=== PATIENT | male | born 1955 | race Two or more races ===

== ENCOUNTER 2017-01-14 11:15 | Inpatient (IN) | payer OTHER ==
[2017-01-14 11:46] VITALS: BMI 24.4
--- NOTE | 2017-01-14 14:16 | HP ---
CIWA Score - CIWA Score Nausea/Vomitin Muscle Tremors: 3 Anxiety: 3 Agitation: 3 Paroxysmal Sweats: 2 Orientation: 0-Oriented Tacttile Disturbances: 2-Mild Itch/Numbness/Burn Auditory Disturbances: 2-Mild Harshness/Frighten Visual Disturbances: 2-Mild Sensitivity Headache: 2-Mild CIWA-Ar Total Score: 22 Admission ROS BHS - HPI Chief Complaint: i need help to stop drinking alcohol Allergies/Adverse Reactions: Allergies Allergy/AdvReac Type Severity Reaction Status Date / Time sulfamethoxazole Allergy Severe Rash Verified 09/26/16 09:42 [From Bactrim] trimethoprim [From Bactrim] Allergy Severe Rash Verified 09/26/16 09:42 History of Present Illness: this 61 years old male with alcohol dependence,withdrawal symptom,last detox [facility] 09/26/16 to 09/30/16 gerd anxiety and depression' insomnia positive ppd treated Exam Limitations: No Limitations - Ebola screening Have you traveled outside of the country in the last 21 days: No Have you been sick,other than usual withdrawal symptoms: No - Review of Systems Constitutional: Diaphoresis, Loss of Appetite, Malaise, Night Sweats, Changes in sleep, Weakness EENT: reports: No Symptoms Reported, Nose Congestion Respiratory: reports: No Symptoms reported Cardiac: reports: No Symptoms Reported GI: reports: Diarrhea, Nausea, Indigestion, Abdominal cramping : reports: No Symptoms Reported Integumentary: reports: Dryness Neuro: reports: Headache, Tremors Endocrine: reports: No Symptoms Reported Hematology: reports: No Symptoms Reported Psychiatric: reports: No Sypmtoms Reported, Judgement Intact, Mood/Affect Appropiate, Orientated x3, Anxious, Depressed Patient History - Patient Medical History Hx Asthma: No Hx Chronic Obstructive Pulmonary Disease (COPD): No Hx Cancer: No Hx Cardiac Disorders: No Hx Congestive Heart Failure: No Hx Hypertension: No Hx Hypercholesterolemia: No Hx Pacemaker: No HX Cerebrovascular Accident: No Hx Seizures: No Hx Dementia: No Hx Diabetes: No Hx Gastrointestinal Disorders: No Hx Liver Disease: No Hx Genitourinary Disorders: No Hx Sexually Transmitted Disorders: No Hx Renal Disease (ESRD): No Hx Thyroid Disease: No Hx Human Immunodeficiency Virus (HIV): No (LAST 08/17 NEGATIVE) Hx Hepatitis C: No Hx Depression: Yes (ANXIETY) Hx Suicide Attempt: No Hx Bipolar Disorder: No Hx Schizophrenia: No Other Medical History: no suicidal,no homicidal,low back pain - Patient Surgical History Past Surgical History: No Hx Neurologic Surgery: No Hx Cataract Extraction: No Hx Cardiac Surgery: No Hx Lung Surgery: No Hx Breast Surgery: No Hx Breast Biopsy: No Hx Abdominal Surgery: No Hx Appendectomy: No Hx Cholecystectomy: No Hx Genitourinary Surgery: No Hx Section: No Hx Orthopedic Surgery: No Anesthesia Reaction: No - PPD History Documented Results: Positive w/proof PPD to be Administered?: No - Smoking Cessation Smoking history: Never smoked Hx Chewing Tobacco Use: No Family Disease History - Family Disease History Family Disease History: Other: Father (ALCOHOL) Admission Physical Exam [facility] - Vital Signs Vital Signs: Vital Signs - 24 hr 01/14/17 11:44 Temperature 97.4 F L Pulse Rate 74 Respiratory 20 Rate Blood Pressure 150/88 - Physical General Appearance: Yes: Moderate Distress, Tremorous, Irritable, Sweating, Anxious HEENTM: Yes: Normocephalic, Pharynx Normal, Nasal Congestion Respiratory: Yes: Lungs Clear, Normal Breath Sounds, No Respiratory Distress Neck: Yes: Within Normal Limits Breast: Yes: Within Normal Limits Cardiology: Yes: Within Normal Limits, Regular Rhythm, Regular Rate, S1, S2 Abdominal: Yes: Within Normal Limits, Normal Bowel Sounds, Non Tender, Flat, Soft Genitourinary: Yes: Within Normal Limits Back: Yes: Within Normal Limits, Muscle Spasm Musculoskeletal: Yes: Back pain, Muscle Pain Extremities: Yes: Within Normal Limits, Normal Range of Motion, Tremors 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, Alert, Motor Strength 5/5 Integumentary: Yes: Dry Lymphatic: Yes: Within Normal Limits - Diagnostic (1) Alcohol dependence with uncomplicated withdrawal Current Visit: No Status: Acute (2) Anxiety and depression Current Visit: No Status: Acute (3) Syncope Current Visit: No Status: Acute (4) Insomnia Current Visit: No Status: Acute (5) Low back pain Current Visit: No Status: Chronic Qualifiers: Chronicity: chronic Back pain laterality: unspecified Sciatica presence: with sciatica presence unspecified Qualified Code(s): M54.5 - Low back pain Cleared for Admission [facility] - Detox or Rehab [facility] Level of Care: Medically Managed Detox Regimen/Protocol: Librium [facility] Breath Alcohol Content Breath Alcohol Content: 0 Urine Drug Screen - Results Drug Screen Negative: No Urine Drug Screen Results: MET-Methamphetamine, BZO-Benzodiazepines, TCA- Tricyclic Antidepress
[2017-01-14] MEDS ORDERED: P-EPHED 60MG/TRIPROLIDI 2.5MG TABLET PO PRN (14:30)
[2017-01-14] MEDS ORDERED: ACETAMINOPHEN 325 MG TABLET (FP) PO PRN (14:30)
[2017-01-14] MEDS ORDERED: LOPERAMIDE HCL 2 MG CAPSULE PO PRN (14:30)
[2017-01-14] MEDS ORDERED: MAG HYDROX/AL HYDROX/SIMETH 30 ML UNIT-DOSE CUP PO PRN (14:30)
[2017-01-14] MEDS ORDERED: MAGNESIUM CITRATE 300 ML BOTTLE PO PRN (14:30)
[2017-01-14] MEDS ORDERED: hydrOXYzine PAMOATE 50 MG CAPSULE (FP) PO PRN (14:30)
[2017-01-14] MEDS ORDERED: MAGNESIUM HYDROX 2400MG/30ML ORAL SUSPENSION 30 ML CUP PO PRN (14:30)
[2017-01-14] MEDS ORDERED: guaiFENesin/D-METHORPHAN HB 10 ML UNIT-DOSE CUPS PO PRN (14:30)
[2017-01-14] MEDS ORDERED: IBUPROFEN 400 MG TABLET (FP) PO PRN (14:30)
[2017-01-14] MEDS ORDERED: MENTHOL/PHENOL 1 EACH UD MM PRN (14:30)
[2017-01-14] MEDS ORDERED: diphenhydrAMINE HCL 50 MG CAPSULE PO PRN (14:30)
[2017-01-14] MEDS ORDERED: chlordiazePOXIDE HCL 25 MG CAPSULE PO PRN (14:30)
--- NOTE | 2017-01-14 14:30 | HP ---
CIWA Score - CIWA Score Nausea/Vomitin Muscle Tremors: 3 Anxiety: 3 Agitation: 3 Paroxysmal Sweats: 2 Orientation: 0-Oriented Tacttile Disturbances: 2-Mild Itch/Numbness/Burn Auditory Disturbances: 2-Mild Harshness/Frighten Visual Disturbances: 2-Mild Sensitivity Headache: 2-Mild CIWA-Ar Total Score: 22 Admission ROS S - HPI Allergies/Adverse Reactions: Allergies Allergy/AdvReac Type Severity Reaction Status Date / Time sulfamethoxazole Allergy Severe Rash Verified 01/14/17 14:10 [From Bactrim] trimethoprim [From Bactrim] Allergy Severe Rash Verified 01/14/17 14:10 - Ebola screening Have you traveled outside of the country in the last 21 days: No Have you been sick,other than usual withdrawal symptoms: No Patient History - Patient Medical History Hx Asthma: No Hx Chronic Obstructive Pulmonary Disease (COPD): No Hx Cancer: No Hx Cardiac Disorders: No Hx Congestive Heart Failure: No Hx Hypertension: No Hx Hypercholesterolemia: No Hx Pacemaker: No HX Cerebrovascular Accident: No Hx Seizures: No Hx Dementia: No Hx Diabetes: No Hx Gastrointestinal Disorders: No Hx Liver Disease: No Hx Genitourinary Disorders: No Hx Sexually Transmitted Disorders: No Hx Renal Disease (ESRD): No Hx Thyroid Disease: No Hx Human Immunodeficiency Virus (HIV): No (LAST 08/17 NEGATIVE) Hx Hepatitis C: No Hx Depression: Yes (ANXIETY) Hx Suicide Attempt: No Hx Bipolar Disorder: No Hx Schizophrenia: No Other Medical History: no suicidal,no homicidal,low back pain - Patient Surgical History Past Surgical History: No Hx Neurologic Surgery: No Hx Cataract Extraction: No Hx Cardiac Surgery: No Hx Lung Surgery: No Hx Breast Surgery: No Hx Breast Biopsy: No Hx Abdominal Surgery: No Hx Appendectomy: No Hx Cholecystectomy: No Hx Genitourinary Surgery: No Hx Section: No Hx Orthopedic Surgery: No Anesthesia Reaction: No - PPD History Previous Implant?: Yes Documented Results: Positive w/proof Implanted On Prior R Admission?: No - Smoking Cessation Smoking history: Never smoked Hx Chewing Tobacco Use: No Family Disease History - Family Disease History Family Disease History: Other: Father (ALCOHOL) Admission Physical Exam S - Vital Signs Vital Signs: Vital Signs - 24 hr 01/14/17 11:44 Temperature 97.4 F L Pulse Rate 74 Respiratory 20 Rate Blood Pressure 150/88 - Diagnostic (1) Alcohol dependence with uncomplicated withdrawal Current Visit: No Status: Acute (2) Anxiety and depression Current Visit: No Status: Acute (3) Syncope Current Visit: No Status: Acute (4) Insomnia Current Visit: No Status: Acute (5) Low back pain Current Visit: No Status: Chronic Qualifiers: Chronicity: chronic Back pain laterality: unspecified Sciatica presence: with sciatica presence unspecified Qualified Code(s): M54.5 - Low back pain Cleared for Admission [facility] - Detox or Rehab [facility] Level of Care: Medically Managed Detox Regimen/Protocol: Librium [facility] Breath Alcohol Content Breath Alcohol Content: 0 Urine Drug Screen - Results Drug Screen Negative: No Urine Drug Screen Results: MET-Methamphetamine, BZO-Benzodiazepines, TCA- Tricyclic Antidepress
[2017-01-14] MEDS ORDERED: chlordiazePOXIDE HCL 25 MG CAPSULE PO ONE (15:19)
[2017-01-14] MEDS: chlordiazePOXIDE HCL 25 MG CAPSULE PO SCH ×2 (17:51→22:28)
--- NOTE | 2017-01-14 18:18 | CONSULT ---
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 Substance Abuse History: Patient abuses beer on a daily basis.Onset of abuse : age 18. No history of smoking. Medical History: Significant for alcohol-related seizures. Psychiatric History: No history of psychiatric hospitalizations.Known to multiple detox/rehabilitation facilities.Diagnosed with Mood Disorder and Anxiety.Patient used to be on remeron 15 mg/hs + topamax 50 mg/day + gabapentin 600 mg po tid.Mr Etienne states the has not taken psychotropic medications for over six months.He was discharged from this service in September 2016 but he stopped taking the prescribed remeron after he ran out of that medication.Patient requests that remeron be included in his current regimen.No history of suicide attempts. Physical/Sexual Abuse/Trauma History: Patient denies. Additional Comment: Urine Drug Screen Results: MET-Methamphetamine, BZO- Benzodiazepines, TCA-Tricyclic Antidepressant.Noted. Mental Status Exam - Mental Status Exam Alert and Oriented to: Time, Place, Person Cognitive Function: Good Patient Appearance: Well Groomed Mood: Hopeful, Euthymic Affect: Appropriate, Normal Range Patient Behavior: Fatigued, Appropriate, Cooperative Speech Pattern: Clear, Appropriate Voice Loudness: Normal Thought Process: Goal Oriented Thought Disorder: Not Present Hallucinations: Denies Suicidal Ideation: Denies Homicidal Ideation: Denies Insight/Judgement: Fair Sleep: Poorly, Difficulty falling asleep Appetite: Good Muscle strength/Tone: Normal Gait/Station: Normal Psychiatric Findings - Problem List ([place] 1, 2,3) (1) Alcohol dependence with uncomplicated withdrawal Current Visit: Yes Status: Acute (2) Alcohol-induced mood disorder Current Visit: Yes Status: Acute (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
[2017-01-14 18:39] LABS: URINE APPEARANCE CLEAR; URINE BILIRUBIN NEGATIVE (NEGATIVE); URINE COLOR YELLOW; URINE GLUCOSE (UA) NEGATIVE (NEGATIVE); URINE KETONE NEGATIVE (NEGATIVE); URINE LEUK ESTERASE NEGATIVE (NEGATIVE); URINE NITRITE NEGATIVE (NEGATIVE); URINE PROTEIN NEGATIVE (NEGATIVE); URINE UROBILINOGEN NEGATIVE E.U./dl (0.2-1.0)
[2017-01-14 18:40] LABS: URINE BLOOD 1+ (NEGATIVE)
[2017-01-14 18:45] LABS: URINE BACTERIA RARE /hpf (NONE SEEN); URINE WBC 1 /hpf (3-5)
[2017-01-14] MEDS: MIRTAZAPINE 15 MG TABLET (FP) PO SCH (22:28)
[2017-01-14] MEDS: RANITIDINE HCL 150 MG TABLET (FP) PO SCH (22:28)
[2017-01-14] MEDS: THIAMINE HCL 100 MG TABLET (FP) PO SCH (22:28)
[2017-01-15] MEDS: chlordiazePOXIDE HCL 25 MG CAPSULE PO SCH ×4 (06:05→22:25)
[2017-01-15 09:55] LABS: MCH 32.3 pg (25.7-33.7); MCHC 33.5 g/dl (32.0-35.9); MEAN CELL VOLUME 96.4 fl (80-96); MEAN PLT VOLUME 8.7 fl (7.5-11.1); PLATELET COUNT 242 K/MM3 (134-434); RDW 14.9 % (11.9-15.9); WHITE BLOOD COUNT 6.7 K/mm3 (4.0-10.0)
[2017-01-15] MEDS ORDERED: PRENATAL VITAMINS W/ FOLIC ACID TABLET (FP) PO SCH (10:00)
[2017-01-15 10:42] LABS: ALBUMIN 3.8 g/dl (3.4-5.0); ALK PHOS 96 U/L (45-117); ANION GAP 9 (8-16); BILIRUBIN,TOTAL 0.9 mg/dL (0.2-1.0); CALCIUM 9.8 mg/dL (8.5-10.1); CO2 29 mmol/L (21-32); GLUCOSE,RANDOM 107 mg/dL (74-106); SGOT/AST 82 U/L (15-37); SGPT/ALT 85 U/L (12-78); TOT PROT 7.5 g/dl (6.4-8.2)
--- NOTE | 2017-01-15 11:15 | PN ---
S CIWA - CIWA Score Nausea/Vomitin Muscle Tremors: 3 Anxiety: 3 Agitation: 3 Paroxysmal Sweats: 3 Orientation: 0-Oriented Tacttile Disturbances: 2-Mild Itch/Numbness/Burn Auditory Disturbances: 0-None Visual Disturbances: 0-None Headache: 0-None Present CIWA-Ar Total Score: 16 BHS Progress Note (SOAP) Subjective: shakes sweats, irritable Objective: 01/15/17 11:14 Vital Signs Temperature 97 F L 01/15/17 10:15 Pulse Rate 107 H 01/15/17 10:15 Respiratory Rate 16 01/15/17 10:15 Blood Pressure 128/78 01/15/17 10:15 O2 Sat by Pulse Oximetry (%) Laboratory Tests 01/14/17 01/14/17 01/15/17 14:15 17:45 06:00 WBC 6.7 RBC 4.60 Hgb 14.8 D Hct 44.3 MCV 96.4 H MCHC 33.5 RDW 14.9 D Plt Count 242 MPV 8.7 Sodium Potassium Chloride Carbon Dioxide Anion Gap BUN Creatinine Creat Clearance w eGFR Random Glucose Calcium Total Bilirubin AST ALT Alkaline Phosphatase Total Protein Albumin Urine Color Yellow Urine Appearance Clear Urine pH 8.0 D Ur Specific [place] 1.006 Urine Protein Negative Urine Glucose (UA) Negative Urine Ketones Negative Urine Blood 1+ H Urine Nitrite Negative Urine Bilirubin Negative Urine Urobilinogen Negative Ur Leukocyte Esterase Negative Urine RBC None Urine WBC 1 Ur Epithelial Cells Rare Urine Bacteria Rare Hepatitis C Antibody 0.1 01/15/17 06:00 WBC RBC Hgb Hct MCV MCHC RDW Plt Count MPV Sodium 136 Potassium 3.9 Chloride 98 Carbon Dioxide 29 Anion Gap 9 BUN 10 Creatinine 1.0 D Creat Clearance w eGFR > 60 Random Glucose 107 H D Calcium 9.8 Total Bilirubin 0.9 D AST 82 H D ALT 85 H D Alkaline Phosphatase 96 Total Protein 7.5 Albumin 3.8 Urine Color Urine Appearance Urine pH Ur Specific [place] Urine Protein Urine Glucose (UA) Urine Ketones Urine Blood Urine Nitrite Urine Bilirubin Urine Urobilinogen Ur Leukocyte Esterase Urine RBC Urine WBC Ur Epithelial Cells Urine Bacteria Hepatitis C Antibody pt aox3 in nad ambulating , irritable Assessment: 01/15/17 11:14 withdrawal sx;s Plan: cont. detox increase fluids d/c tylenol
--- NOTE | 2017-01-15 15:29 | EKG ---
Test Reason : Blood Pressure : / mmHG Vent. Rate : 069 BPM Atrial Rate : 069 BPM P-R Int : 158 ms QRS Dur : 098 ms QT Int : 408 ms P-R-T Axes : 025 -01 014 degrees QTc Int : 437 ms NORMAL SINUS RHYTHM NORMAL ECG NO PREVIOUS ECGS AVAILABLE Confirmed by GENARO RODRIGUEZ MD ([id number]) on 01/15/2017 3:29:26 PM Referred By: Confirmed By:GENARO RODRIGUEZ MD
[2017-01-15] MEDS: THIAMINE HCL 100 MG TABLET (FP) PO SCH (22:24)
[2017-01-15] MEDS: MIRTAZAPINE 15 MG TABLET (FP) PO SCH (22:24)
[2017-01-15] MEDS: RANITIDINE HCL 150 MG TABLET (FP) PO SCH (22:25)
[2017-01-16] MEDS: chlordiazePOXIDE HCL 25 MG CAPSULE PO SCH (06:06)
[2017-01-16 11:00] VITALS: BP 121/87; PULSE 88; TEMP 98.6
--- NOTE | 2017-01-16 11:25 | DS ---
[facility] Detox Discharge Summary Admission Date: 01/14/17 Discharge Date: 01/16/17 (did not want to complete detox) - History Present History: Alcohol Dependence - Physical Exam Results Vital Signs: Vital Signs Temperature 98.6 F 01/16/17 10:00 Pulse Rate 88 01/16/17 10:00 Respiratory Rate 16 01/16/17 10:00 Blood Pressure 121/87 01/16/17 10:00 O2 Sat by Pulse Oximetry (%) - Treatment Hospital Course: Detox Protocol Followed, Detoxed Safely, Responded well, Discharged Condition Good, Rehab Referral Accepted - Medication Discharge Medications: Ambulatory Orders Mirtazapine 7.5 mg PO HS #30 tablet 01/14/17 Mirtazapine [Remeron -] 30 mg PO HS 01/14/17 Ranitidine [Zantac -] 150 mg PO HS 01/14/17 - Diagnosis (1) Alcohol dependence with uncomplicated withdrawal Current Visit: Yes Status: Chronic (2) Alcohol-induced mood disorder Current Visit: Yes Status: Acute (3) Alcohol-induced sleep disorder Current Visit: Yes Status: Chronic (4) Insomnia Current Visit: Yes Status: Chronic (5) Low back pain Current Visit: Yes Status: Chronic Qualifiers: Chronicity: chronic Back pain laterality: unspecified Sciatica presence: with sciatica presence unspecified Qualified Code(s): M54.5 - Low back pain (6) Abrasion of face Current Visit: No Status: Resolved Qualifiers: Encounter type: initial encounter Qualified Code(s): S00.81XA - Abrasion of other part of head, initial encounter (7) Anxiety and depression Current Visit: No Status: Acute (8) Frequent falls Current Visit: No Status: Acute (9) Syncope Current Visit: No Status: Acute (10) Weight loss Current Visit: No Status: Acute (11) Alcohol related seizure Current Visit: No Status: Chronic (12) Mood disorder Current Visit: No Status: Suspected - AMA Did Patient Leave Against Medical Advice: Yes
[2017-01-16] MEDS ORDERED: chlordiazePOXIDE 5 MG CAPSULE PO SCH (17:00)
[2017-01-17] MEDS ORDERED: chlordiazePOXIDE HCL 10 MG CAPSULE PO SCH (17:00)
== END 2017-01-16 11:34 | disposition left against medical advice (07) | DRG 770 ==
LOC: YASAS 11:15 → Y6N 14:37
PROVIDERS: ADMIT Internal Medicine Addiction Medicine; ATTEND Internal Medicine Addiction Medicine
PROC: HZ2ZZZZ Detoxification Services for Substance Abuse Treatment (ICD-10-PCS; principal; 2017-01-16)
DX: F10.230 Alcohol dependence with withdrawal, uncomplicated (principal); F10.24 Alcohol dependence with alcohol-induced mood disorder; F10.282 Alcohol dependence with alcohol-induced sleep disorder; G47.00 Insomnia, unspecified; M54.5 Low back pain
CPT/HCPCS: 36415; 80053; 81003; 81015; 85027; 86593; 93005; 93010

== ENCOUNTER 2017-02-20 16:39 | Inpatient (IN) | payer OTHER ==
[2017-02-20 20:03] VITALS: BMI 25.7
--- NOTE | 2017-02-20 20:05 | HP ---
CIWA Score - CIWA Score Nausea/Vomitin Muscle Tremors: 3 Anxiety: 3 Agitation: 3 Paroxysmal Sweats: 2 Orientation: 0-Oriented Tacttile Disturbances: 2-Mild Itch/Numbness/Burn Auditory Disturbances: 2-Mild Harshness/Frighten Visual Disturbances: 2-Mild Sensitivity Headache: 2-Mild CIWA-Ar Total Score: 22 Admission ROS [facility] - HPI Chief Complaint: I NEED HELP TO STOP DRINKING ALCOHOL Allergies/Adverse Reactions: Allergies Allergy/AdvReac Type Severity Reaction Status Date / Time sulfamethoxazole Allergy Severe Rash Verified 02/20/17 21:28 [From Bactrim] trimethoprim [From Bactrim] Allergy Severe Rash Verified 02/20/17 21:28 History of Present Illness: THIS 61 YEARS OLD MALE WITH ALCOHOL DEPENDENCE,WITHDRAWAL SYMPTOM,LAST DETOX TO 01/16/17 [place] ANXIETY DEPRESSION INSOMNIA LONGEST PERIOD SOBRIETY 11 MONTHS Exam Limitations: No Limitations - Ebola screening Have you traveled outside of the country in the last 21 days: Yes (Y) Have you had contact with anyone from an Ebola affected area: Yes Do you have a fever: Yes - Review of Systems Constitutional: Loss of Appetite, Malaise, Night Sweats, Changes in sleep, Weakness EENT: reports: Nose Congestion Respiratory: reports: No Symptoms reported Cardiac: reports: No Symptoms Reported GI: reports: Nausea, Vomiting, Abdominal cramping : reports: No Symptoms Reported Musculoskeletal: reports: Back Pain, Muscle Pain Integumentary: reports: Dryness Neuro: reports: Headache, Tremors Endocrine: reports: No Symptoms Reported Hematology: reports: No Symptoms Reported Psychiatric: reports: Judgement Intact, Mood/Affect Appropiate, Orientated x3, Anxious, Depressed, other (INSOMNIA) Patient History - Patient Medical History Hx Anemia: No Hx Asthma: No Hx Chronic Obstructive Pulmonary Disease (COPD): No Hx Cancer: No Hx Cardiac Disorders: No Hx Congestive Heart Failure: No Hx Hypertension: No Hx Hypercholesterolemia: No Hx Pacemaker: No HX Cerebrovascular Accident: No Hx Seizures: No Hx Dementia: No Hx Diabetes: No Hx Gastrointestinal Disorders: No Hx Liver Disease: No Hx Genitourinary Disorders: No Hx Sexually Transmitted Disorders: No Hx Renal Disease (ESRD): No Hx Thyroid Disease: No Hx Human Immunodeficiency Virus (HIV): No (11/18 NEGATIVE) Hx Hepatitis C: No Hx Depression: Yes (ANXIETY) Hx Suicide Attempt: No Hx Bipolar Disorder: No Hx Schizophrenia: No Other Medical History: INSOMNIA,NO SUICIDAL,NO HOMICIDAL - Patient Surgical History Past Surgical History: No Hx Neurologic Surgery: No Hx Cataract Extraction: No Hx Cardiac Surgery: No Hx Lung Surgery: No Hx Breast Surgery: No Hx Breast Biopsy: No Hx Abdominal Surgery: No Hx Appendectomy: No Hx Cholecystectomy: No Hx Genitourinary Surgery: No Hx Section: No Hx Orthopedic Surgery: No Anesthesia Reaction: No - PPD History Previous Implant?: Yes Documented Results: Positive w/proof Implanted On Prior [facility] Admission?: No PPD to be Administered?: No - Smoking Cessation Smoking history: Never smoked Hx Chewing Tobacco Use: No - Substance & Tx. History Hx Alcohol Use: Yes Hx Substance Use: No Substance Use Type: Alcohol Hx Substance Use Treatment: Yes (01/14/17 TO 01/16/17) - Substances Abused Alcohol Route: Oral Frequency: Daily Amount used: 10 OF 25 OZS OF BEER Age of first use: 18 Date of Last Use: 02/20/17 Family Disease History - Family Disease History Family Disease History: Other: Father (ALCOHOL) Admission Physical Exam [facility] - Vital Signs Vital Signs: Vital Signs Temperature 96.7 F L 02/20/17 20:00 Pulse Rate 77 02/20/17 20:00 Respiratory Rate 20 02/20/17 20:00 Blood Pressure 133/87 02/20/17 20:00 O2 Sat by Pulse Oximetry (%) - Physical General Appearance: Yes: Moderate Distress, Tremorous, Irritable, Sweating, Anxious HEENTM: Yes: Hearing grossly Normal, Normal ENT Inspection, JEAN, Pharynx Normal Respiratory: Yes: Lungs Clear, Normal Breath Sounds, No Respiratory Distress Neck: Yes: Within Normal Limits, Supple, Trachea in good position Breast: Yes: Within Normal Limits Cardiology: Yes: Within Normal Limits, Regular Rhythm, S1, S2, Tachycardia Abdominal: Yes: Within Normal Limits, Normal Bowel Sounds, Non Tender, Flat, Soft Genitourinary: Yes: Within Normal Limits Back: Yes: Within Normal Limits, Normal Inspection Musculoskeletal: Yes: full range of Motion, Back pain Extremities: Yes: Normal Inspection, Normal Range of Motion, Tremors 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
[2017-02-20] MEDS ORDERED: MAGNESIUM HYDROX 2400MG/30ML ORAL SUSPENSION 30 ML CUP PO PRN (20:20)
[2017-02-20] MEDS ORDERED: MENTHOL/PHENOL 1 EACH UD MM PRN (20:20)
[2017-02-20] MEDS ORDERED: LOPERAMIDE HCL 2 MG CAPSULE PO PRN (20:20)
[2017-02-20] MEDS ORDERED: MAG HYDROX/AL HYDROX/SIMETH 30 ML UNIT-DOSE CUP PO PRN (20:20)
[2017-02-20] MEDS ORDERED: guaiFENesin/D-METHORPHAN HB 10 ML UNIT-DOSE CUPS PO PRN (20:20)
[2017-02-20] MEDS ORDERED: P-EPHED 60MG/TRIPROLIDI 2.5MG TABLET PO PRN (20:20)
[2017-02-20] MEDS ORDERED: hydrOXYzine PAMOATE 25 MG CAPSULE (FP) PO PRN (20:20)
[2017-02-20] MEDS ORDERED: MAGNESIUM CITRATE 300 ML BOTTLE PO PRN (20:20)
[2017-02-20] MEDS ORDERED: ACETAMINOPHEN 325 MG TABLET (FP) PO PRN (20:20)
[2017-02-20] MEDS ORDERED: chlordiazePOXIDE HCL 25 MG CAPSULE PO ONE (20:20)
[2017-02-20] MEDS ORDERED: chlordiazePOXIDE HCL 25 MG CAPSULE PO PRN (20:20)
[2017-02-20] MEDS ORDERED: diphenhydrAMINE HCL 50 MG CAPSULE PO PRN (20:20)
[2017-02-20] MEDS ORDERED: IBUPROFEN 400 MG TABLET (FP) PO PRN (20:20)
[2017-02-20 23:35] LABS: URINE APPEARANCE CLEAR; URINE BILIRUBIN NEGATIVE (NEGATIVE); URINE BLOOD NEGATIVE (NEGATIVE); URINE COLOR STRAW; URINE GLUCOSE (UA) NEGATIVE (NEGATIVE); URINE KETONE NEGATIVE (NEGATIVE); URINE LEUK ESTERASE NEGATIVE (NEGATIVE); URINE NITRITE NEGATIVE (NEGATIVE); URINE PROTEIN NEGATIVE (NEGATIVE); URINE UROBILINOGEN NEGATIVE E.U./dl (0.2-1.0)
[2017-02-20] MEDS: RANITIDINE HCL 150 MG TABLET (FP) PO SCH (23:42)
[2017-02-20] MEDS: chlordiazePOXIDE HCL 25 MG CAPSULE PO SCH (23:42)
[2017-02-20] MEDS: THIAMINE HCL 100 MG TABLET (FP) PO SCH (23:42)
[2017-02-21] MEDS: chlordiazePOXIDE HCL 25 MG CAPSULE PO SCH ×4 (05:53→22:17)
--- NOTE | 2017-02-21 10:07 | EKG ---
Test Reason : Blood Pressure : / mmHG Vent. Rate : 065 BPM Atrial Rate : 065 BPM P-R Int : 168 ms QRS Dur : 098 ms QT Int : 410 ms P-R-T Axes : 039 004 021 degrees QTc Int : 426 ms NORMAL SINUS RHYTHM WHEN COMPARED WITH ECG OF 14-JAN-2017 14:30, NO SIGNIFICANT CHANGE WAS FOUND Confirmed by SAMIA ADKINS MD ([id number]) on 02/21/2017 10:07:10 AM Referred By: Jurgen Vivar Confirmed By:SAMIA ADKINS MD
[2017-02-21] MEDS: PRENATAL VITAMINS W/ FOLIC ACID TABLET (FP) PO SCH (10:18)
[2017-02-21] MEDS: ASPIRIN 81 MG CHEWABLE TABLETS PO SCH (10:18)
[2017-02-21 10:26] LABS: MCH 33.1 pg (25.7-33.7); MCHC 34.6 g/dl (32.0-35.9); MEAN CELL VOLUME 95.7 fl (80-96); MEAN PLT VOLUME 7.7 fl (7.5-11.1); PLATELET COUNT 176 K/MM3 (134-434); RDW 14.4 % (11.9-15.9); WHITE BLOOD COUNT 7.2 K/mm3 (4.0-10.0)
--- NOTE | 2017-02-21 10:57 | CONSULT ---
[facility] Psychiatric Consult - Data Date of interview: 02/21/17 Admission source: [facility] Identifying data: This is 61 years old male with no psychiatric hospitalization history intoxicated with Alcohol Substance Abuse History: - Smoking Cessation. Smoking history: Never smoked. Hx Chewing Tobacco Use: No. - Substance & Tx. History. Hx Alcohol Use: Yes. Hx Substance Use: No. Substance Use Type: Alcohol. Hx Substance Use Treatment : Yes (01/14/17 TO 01/16/17). - Substances Abused. Alcohol. Route: Oral. Frequency: Daily. Amount used: 10 OF 25 OZS OF BEER. Age of first use: 18. Date of Last Use: 02/20/17 Medical History: LBP, Syncope history, Weight loss history, PPD + history, Face abrasion Psychiatric History: Patient reports history of depression and anxiety. reports taking prior to admiossion: Remeron 45mg po qhs Physical/Sexual Abuse/Trauma History: Denies Additional Comment: Remeron 45mg po qhs Mental Status Exam - Mental Status Exam Alert and Oriented to: Person Cognitive Function: Fair Patient Appearance: Unkempt Mood: Sad Affect: Flat Patient Behavior: Sedated Speech Pattern: Delayed Voice Loudness: Mildly Soft/Quiet Thought Process: Circumstantial Thought Disorder: Being Controlled Hallucinations: Denies Suicidal Ideation: Denies Homicidal Ideation: Denies Insight/Judgement: Fair Sleep: Poorly Appetite: Weight loss Muscle strength/Tone: Normal Gait/Station: Shuffling Additional Comments: Remeron 45mg po qhs Psychiatric Findings - Problem List ([place] 1, 2,3) (1) Alcohol-induced mood disorder Current Visit: No Status: Acute (2) Anxiety and depression Current Visit: No Status: Acute (3) Alcohol dependence with uncomplicated withdrawal Current Visit: No Status: Chronic (4) Alcohol related seizure Current Visit: No Status: Chronic (5) Alcohol-induced sleep disorder Current Visit: No Status: Chronic (6) Mood disorder Current Visit: No Status: Suspected - Initial Treatment Plan Initial Treatment Plan: Remeron 45mg po qhs
[2017-02-21 11:25] LABS: ALBUMIN 3.7 g/dl (3.4-5.0); ALK PHOS 104 U/L (45-117); ANION GAP 11 (8-16); BILIRUBIN,TOTAL 0.8 mg/dL (0.2-1.0); CALCIUM 8.4 mg/dL (8.5-10.1); CO2 24 mmol/L (21-32); COCKROFT - GAULT 91.57; GLUCOSE,RANDOM 92 mg/dL (74-106); SGOT/AST 121 U/L (15-37); SGPT/ALT 78 U/L (12-78); TOT PROT 7.7 g/dl (6.4-8.2)
[2017-02-21] MEDS ORDERED: COLLOIDAL OATMEAL 1 BAR EACH TP PRN (12:06)
[2017-02-21] MEDS: AMMONIUM LACTATE 12% LOTION 225 GM BOTTLE TP SCH ×2 (14:32→22:18)
--- NOTE | 2017-02-21 17:22 | PN ---
[facility] CIWA - CIWA Score Nausea/Vomitin-Mild Nausea/No Vomiting Muscle Tremors: 5 Anxiety: 4-Mod. Anxious/Guarded Agitation: 4-Moderately Restless Paroxysmal Sweats: 3 Orientation: 0-Oriented Tacttile Disturbances: 3-Moderate Itch/Numb/Burn Auditory Disturbances: 0-None Visual Disturbances: 2-Mild Sensitivity Headache: 0-None Present CIWA-Ar Total Score: 22 BHS Progress Note (SOAP) Subjective: Tremors, Diarrhea, Interrupted sleep, Anxious. Pt. reporting "white spots" and sensation of itch on dorsum of bilateral hands. Objective: PT. A & O X 3, OBSERVED AMBULATING ON UNIT. SEVERAL SMALL WHITE SPOTS ALONG WITH DRY SKIN NOTED ON DORSUM OF BILATERAL HANDS. NO UNUSUAL DISCHARGE NOTED. 02/21/17 17:18 Vital Signs Temperature 99.1 F 02/21/17 14:32 Pulse Rate 90 02/21/17 14:32 Respiratory Rate 18 02/21/17 14:32 Blood Pressure 129/83 02/21/17 14:32 O2 Sat by Pulse Oximetry (%) Laboratory Last Values WBC 7.2 K/mm3 (4.0-10.0) 02/21/17 07:50 RBC 4.27 M/mm3 (4.00-5.60) 02/21/17 07:50 Hgb 14.1 GM/dL (11.7-16.9) 02/21/17 07:50 Hct 40.8 % (35.4-49) 02/21/17 07:50 MCV 95.7 fl (80-96) 02/21/17 07:50 MCHC 34.6 g/dl (32.0-35.9) 02/21/17 07:50 RDW 14.4 % (11.9-15.9) 02/21/17 07:50 Plt Count 176 K/MM3 (134-434) D 02/21/17 07:50 MPV 7.7 fl (7.5-11.1) D 02/21/17 07:50 Sodium 137 mmol/L (136-145) 02/21/17 07:50 Potassium 3.9 mmol/L (3.5-5.1) 02/21/17 07:50 Chloride 102 mmol/L (98-107) 02/21/17 07:50 Carbon Dioxide 24 mmol/L (21-32) 02/21/17 07:50 Anion Gap 11 (8-16) 02/21/17 07:50 BUN 8 mg/dL (7-18) 02/21/17 07:50 Creatinine 1.0 mg/dL (0.7-1.3) 02/21/17 07:50 Creat Clearance w eGFR > 60 (>60) 02/21/17 07:50 Random Glucose 92 mg/dL (74-106) 02/21/17 07:50 Calcium 8.4 mg/dL (8.5-10.1) L 02/21/17 07:50 Total Bilirubin 0.8 mg/dL (0.2-1.0) 02/21/17 07:50 AST 121 U/L (15-37) H D 02/21/17 07:50 ALT 78 U/L (12-78) 02/21/17 07:50 Alkaline Phosphatase 104 U/L (45-117) 02/21/17 07:50 Total Protein 7.7 g/dl (6.4-8.2) 02/21/17 07:50 Albumin 3.7 g/dl (3.4-5.0) 02/21/17 07:50 Urine Color Straw 02/20/17 23:25 Urine Appearance Clear 02/20/17 23:25 Urine pH 8.0 (5.0-8.0) 02/20/17 23:25 Ur Specific [place] 1.005 (1.001-1.035) 02/20/17 23:25 Urine Protein Negative (NEGATIVE) 02/20/17 23:25 Urine Glucose (UA) Negative (NEGATIVE) 02/20/17 23:25 Urine Ketones Negative (NEGATIVE) 02/20/17 23:25 Urine Blood Negative (NEGATIVE) 02/20/17 23:25 Urine Nitrite Negative (NEGATIVE) 02/20/17 23:25 Urine Bilirubin Negative (NEGATIVE) 02/20/17 23:25 Urine Urobilinogen Negative E.U./dl (0.2-1.0) 02/20/17 23:25 Ur Leukocyte Esterase Negative (NEGATIVE) 02/20/17 23:25 RPR Titer Nonreactive (NONREACTIVE) 02/21/17 07:50 LABS NOTED. 02/21/17 17:20 Assessment: 02/21/17 17:21 WITHDRAWAL SYMPTOMS. Plan: CONTINUE DETOX. LAC-HYDRIN AND AVEENO SOAP FOR HANDS. ADVISED PATIENT TO FOLLOW-UP WITH REPORTING ANALYST / REHAB MEDICAL PROVIDER AFTER DISCHARGE FROM DETOX FOR GENERAL MEDICAL ASSESSMENT, AND FOR ABNORMAL ADMISSION LAB VALUES , AND FOR HAND SKIN ISSUE IF NO RELIEF IN THE NEXT FEW DAYS.
[2017-02-21] MEDS: RANITIDINE HCL 150 MG TABLET (FP) PO SCH (22:16)
[2017-02-21] MEDS: THIAMINE HCL 100 MG TABLET (FP) PO SCH (22:17)
[2017-02-21] MEDS: MIRTAZAPINE 15 MG TABLET (FP) PO SCH (22:17)
[2017-02-22] MEDS: chlordiazePOXIDE HCL 25 MG CAPSULE PO SCH ×3 (05:55→16:54)
[2017-02-22] MEDS: PRENATAL VITAMINS W/ FOLIC ACID TABLET (FP) PO SCH (10:15)
[2017-02-22] MEDS: ASPIRIN 81 MG CHEWABLE TABLETS PO SCH (10:15)
[2017-02-22] MEDS: AMMONIUM LACTATE 12% LOTION 225 GM BOTTLE TP SCH ×2 (10:16→22:55)
--- NOTE | 2017-02-22 11:33 | PN ---
S CIWA - CIWA Score Nausea/Vomitin-No Nausea/No Vomiting Muscle Tremors: 4-Moderate,w/Arms Extend Anxiety: 3 Agitation: 3 Paroxysmal Sweats: 3 Orientation: 0-Oriented Tacttile Disturbances: 1-Very Mild Itch/Numbness Auditory Disturbances: 0-None Visual Disturbances: 0-None Headache: 0-None Present CIWA-Ar Total Score: 14 BHS Progress Note (SOAP) Subjective: Anxiety,tremors,sweating,interrupted sleep,restless Objective: 02/22/17 11:32 Vital Signs - 8 hr 02/22/17 02/22/17 06:00 10:00 Temperature 97.0 F L 97.7 F Pulse Rate 107 H 111 H Respiratory 18 18 Rate Blood Pressure 143/98 143/96 Laboratory Tests 02/20/17 02/21/17 02/21/17 23:25 07:50 07:50 WBC 7.2 RBC 4.27 Hgb 14.1 Hct 40.8 MCV 95.7 MCHC 34.6 RDW 14.4 Plt Count 176 D MPV 7.7 D Sodium 137 Potassium 3.9 Chloride 102 Carbon Dioxide 24 Anion Gap 11 BUN 8 Creatinine 1.0 Creat Clearance w eGFR > 60 Random Glucose 92 Calcium 8.4 L Total Bilirubin 0.8 AST 121 H D ALT 78 Alkaline Phosphatase 104 Total Protein 7.7 Albumin 3.7 Urine Color Straw Urine Appearance Clear Urine pH 8.0 Ur Specific [place] 1.005 Urine Protein Negative Urine Glucose (UA) Negative Urine Ketones Negative Urine Blood Negative Urine Nitrite Negative Urine Bilirubin Negative Urine Urobilinogen Negative Ur Leukocyte Esterase Negative RPR Titer 02/21/17 07:50 WBC RBC Hgb Hct MCV MCHC RDW Plt Count MPV Sodium Potassium Chloride Carbon Dioxide Anion Gap BUN Creatinine Creat Clearance w eGFR Random Glucose Calcium Total Bilirubin AST ALT Alkaline Phosphatase Total Protein Albumin Urine Color Urine Appearance Urine pH Ur Specific [place] Urine Protein Urine Glucose (UA) Urine Ketones Urine Blood Urine Nitrite Urine Bilirubin Urine Urobilinogen Ur Leukocyte Esterase RPR Titer Nonreactive labs noted Assessment: 02/22/17 11:33 Withdrawal sx. Plan: Continue detox
[2017-02-22] MEDS: THIAMINE HCL 100 MG TABLET (FP) PO SCH (22:18)
[2017-02-22] MEDS: chlordiazePOXIDE 5 MG CAPSULE PO SCH (22:19)
[2017-02-22] MEDS: MIRTAZAPINE 15 MG TABLET (FP) PO SCH (22:19)
[2017-02-22] MEDS: RANITIDINE HCL 150 MG TABLET (FP) PO SCH (22:19)
[2017-02-23] MEDS: chlordiazePOXIDE 5 MG CAPSULE PO SCH ×3 (06:10→17:13)
[2017-02-23] MEDS: PRENATAL VITAMINS W/ FOLIC ACID TABLET (FP) PO SCH (10:19)
[2017-02-23] MEDS: ASPIRIN 81 MG CHEWABLE TABLETS PO SCH (10:19)
[2017-02-23] MEDS: AMMONIUM LACTATE 12% LOTION 225 GM BOTTLE TP SCH ×2 (10:20→22:40)
--- NOTE | 2017-02-23 11:07 | PN ---
BHS Progress Note (SOAP) Subjective: feeling better ,no complaints , very mild tremor Objective: 02/23/17 11:05 Vital Signs Temperature 98.1 F 02/23/17 09:14 Pulse Rate 108 H 02/23/17 09:14 Respiratory Rate 16 02/23/17 09:14 Blood Pressure 138/91 02/23/17 09:14 O2 Sat by Pulse Oximetry (%) Laboratory Tests 02/20/17 02/21/17 02/21/17 23:25 07:50 07:50 WBC 7.2 RBC 4.27 Hgb 14.1 Hct 40.8 MCV 95.7 MCHC 34.6 RDW 14.4 Plt Count 176 D MPV 7.7 D Sodium 137 Potassium 3.9 Chloride 102 Carbon Dioxide 24 Anion Gap 11 BUN 8 Creatinine 1.0 Creat Clearance w eGFR > 60 Random Glucose 92 Calcium 8.4 L Total Bilirubin 0.8 AST 121 H D ALT 78 Alkaline Phosphatase 104 Total Protein 7.7 Albumin 3.7 Urine Color Straw Urine Appearance Clear Urine pH 8.0 Ur Specific [place] 1.005 Urine Protein Negative Urine Glucose (UA) Negative Urine Ketones Negative Urine Blood Negative Urine Nitrite Negative Urine Bilirubin Negative Urine Urobilinogen Negative Ur Leukocyte Esterase Negative RPR Titer 02/21/17 07:50 WBC RBC Hgb Hct MCV MCHC RDW Plt Count MPV Sodium Potassium Chloride Carbon Dioxide Anion Gap BUN Creatinine Creat Clearance w eGFR Random Glucose Calcium Total Bilirubin AST ALT Alkaline Phosphatase Total Protein Albumin Urine Color Urine Appearance Urine pH Ur Specific [place] Urine Protein Urine Glucose (UA) Urine Ketones Urine Blood Urine Nitrite Urine Bilirubin Urine Urobilinogen Ur Leukocyte Esterase RPR Titer Nonreactive pt aox3 in nad ambulattng Assessment: 02/23/17 11:06 withdrawal szs Plan: cot. detox increase fluids d/c in am
[2017-02-23] MEDS: THIAMINE HCL 100 MG TABLET (FP) PO SCH (22:27)
[2017-02-23] MEDS: MIRTAZAPINE 15 MG TABLET (FP) PO SCH (22:27)
[2017-02-23] MEDS: RANITIDINE HCL 150 MG TABLET (FP) PO SCH (22:27)
[2017-02-23] MEDS: chlordiazePOXIDE HCL 10 MG CAPSULE PO SCH (22:41)
[2017-02-24] MEDS: chlordiazePOXIDE HCL 10 MG CAPSULE PO SCH (05:34)
[2017-02-24 06:55] VITALS: BP 96/61; PULSE 77; TEMP 97.5
--- NOTE | 2017-02-24 08:33 | DS ---
[facility] Detox Discharge Summary Admission Date: 02/20/17 Discharge Date: 02/24/17 - History Present History: Alcohol Dependence - Physical Exam Results Vital Signs: Vital Signs Temperature 97.5 F L 02/24/17 06:55 Pulse Rate 77 02/24/17 06:55 Respiratory Rate 18 02/24/17 06:55 Blood Pressure 96/61 02/24/17 06:55 O2 Sat by Pulse Oximetry (%) - Treatment Hospital Course: Detox Protocol Followed, Detoxed Safely, Responded well, Discharged Condition Good, Rehab Referral Accepted - Medication Discharge Medications: Ambulatory Orders Mirtazapine 7.5 mg PO HS #30 tablet 01/14/17 Mirtazapine [Remeron -] 40 mg PO HS 01/14/17 Ranitidine [Zantac -] 150 mg PO HS 01/14/17 Mirtazapine [Remeron -] 45 mg PO HS #30 tablet 02/21/17 Mirtazapine [Remeron [DO NOT STOCK]] 45 mg PO HS #30 tab 02/21/17 - Diagnosis (1) Alcohol-induced mood disorder Current Visit: No Status: Acute (2) Anxiety and depression Current Visit: No Status: Acute (3) Frequent falls Current Visit: No Status: Resolved (4) Syncope Current Visit: No Status: Suspected (5) Weight loss Current Visit: No Status: Acute (6) Alcohol dependence with uncomplicated withdrawal Current Visit: Yes Status: Chronic (7) Alcohol related seizure Current Visit: No Status: Suspected (8) Alcohol-induced sleep disorder Current Visit: No Status: Chronic (9) Insomnia Current Visit: No Status: Chronic (10) Low back pain Current Visit: No Status: Chronic Qualifiers: Chronicity: chronic Back pain laterality: unspecified Sciatica presence: with sciatica presence unspecified (11) Mood disorder Current Visit: No Status: Suspected - AMA Did Patient Leave Against Medical Advice: No
== END 2017-02-24 09:40 | disposition home or self-care (01) | DRG 775 ==
LOC: YASAS 16:39 → Y6N 21:15
PROVIDERS: ADMIT Internal Medicine; ATTEND Internal Medicine
PROC: HZ2ZZZZ Detoxification Services for Substance Abuse Treatment (ICD-10-PCS; principal; 2017-02-24)
DX: F10.230 Alcohol dependence with withdrawal, uncomplicated (principal); F10.24 Alcohol dependence with alcohol-induced mood disorder; F39 Unspecified mood [affective] disorder; F41.8 Other specified anxiety disorders; G40.509 Epileptic seizures related to external causes, not intractable, without status epilepticus; F10.282 Alcohol dependence with alcohol-induced sleep disorder; M54.40 Lumbago with sciatica, unspecified side; R55 Syncope and collapse; R63.4 Abnormal weight loss; Z68.25 Body mass index [BMI] 25.0-25.9, adult; Z91.81 History of falling
CPT/HCPCS: 36415; 80053; 81003; 85027; 86593; 93005; 93010

== ENCOUNTER 2018-06-02 12:59 | Inpatient (IN) | payer SELFPAY ==
[2018-06-02 14:54] VITALS: BMI 20.9
--- NOTE | 2018-06-02 16:34 | HP ---
CIWA Score - CIWA Score Nausea/Vomitin-Int. Nausea w/Dry Heave Muscle Tremors: 2 Anxiety: 3 Agitation: 2 Paroxysmal Sweats: 3 Orientation: 0-Oriented Tacttile Disturbances: 0-None Auditory Disturbances: 0-None Visual Disturbances: 0-None Headache: 0-None Present CIWA-Ar Total Score: 14 Admission ROS S - HPI Chief Complaint: alcohol withdrawal symptoms Allergies/Adverse Reactions: Allergies Allergy/AdvReac Type Severity Reaction Status Date / Time sulfamethoxazole Allergy Severe Rash Verified 06/02/18 16:12 [From Bactrim] trimethoprim [From Bactrim] Allergy Severe Rash Verified 06/02/18 16:12 History of Present Illness: 62 yo male with chronic hx of alcohol dependence is here seeking detox, this is one of multiple admissions to [facility]. Last detox [facility] five months ago. Reports seen at [facility] two days ago for s/p falls secondary to ETOH intoxication two days ago. Reports hx of depression and anxiety. Denies suicidal homicidal ideation or hx of suicide attempt. Denies hx of seizures, reports frequent ETOH related blackouts. Exam Limitations: No Limitations - Ebola screening Have you traveled outside of the country in the last 21 days: No Have you had contact with anyone from an Ebola affected area: No Have you been sick,other than usual withdrawal symptoms: No Do you have a fever: No - Review of Systems Constitutional: Loss of Appetite, Changes in sleep, Unintentional Wgt. Loss (25 lbs) EENT: reports: No Symptoms Reported Respiratory: reports: No Symptoms reported Cardiac: reports: No Symptoms Reported GI: reports: Diarrhea, Nausea, Poor Appetite, Poor Fluid Intake, Vomiting : reports: No Symptoms Reported Musculoskeletal: reports: Back Pain, Joint Pain Integumentary: reports: No Symptoms Reported Neuro: reports: See HPI Endocrine: reports: Increased Thirst Hematology: reports: No Symptoms Reported Psychiatric: reports: Orientated x3, Depressed Other Systems: Reviewed and Negative Patient History - Patient Medical History Hx Anemia: No Hx Asthma: No Hx Chronic Obstructive Pulmonary Disease (COPD): No Hx Cancer: No Hx Cardiac Disorders: No Hx Congestive Heart Failure: No Hx Hypertension: No Hx Hypercholesterolemia: No Hx Pacemaker: No HX Cerebrovascular Accident: No Hx Seizures: No Hx Dementia: No Hx Diabetes: No Hx Gastrointestinal Disorders: No Hx Liver Disease: No Hx Genitourinary Disorders: No Hx Sexually Transmitted Disorders: No Hx Renal Disease (ESRD): No Hx Thyroid Disease: No Hx Human Immunodeficiency Virus (HIV): No (11/18 NEGATIVE) Hx Hepatitis C: No Hx Depression: Yes Hx Suicide Attempt: No Hx Bipolar Disorder: No Hx Schizophrenia: No - Patient Surgical History Past Surgical History: No Hx Neurologic Surgery: No Hx Cataract Extraction: No Hx Cardiac Surgery: No Hx Lung Surgery: No Hx Breast Surgery: No Hx Breast Biopsy: No Hx Abdominal Surgery: No Hx Appendectomy: No Hx Cholecystectomy: No Hx Genitourinary Surgery: No Hx Section: No Hx Orthopedic Surgery: No Anesthesia Reaction: No - PPD History Previous Implant?: Yes (hx PPD + treated in 1979) Documented Results: Positive w/o proof Implanted On Prior R Admission?: No PPD to be Administered?: No - Smoking Cessation Smoking history: Never smoked Hx Chewing Tobacco Use: No Initiated information on smoking cessation: No - Substance & Tx. History Hx Alcohol Use: Yes Hx Substance Use: Yes Substance Use Type: Alcohol Hx Substance Use Treatment: Yes (ast detox [facility] five months ago. ) - Substances Abused Alcohol Route: Oral Frequency: Daily Amount used: 8-12 24 oz cans beer Age of first use: 18 Date of Last Use: 06/02/18 Family Disease History - Family Disease History Family Disease History: Other: Father (ALCOHOL) Admission Physical Exam BHS - Vital Signs Vital Signs: Vital Signs - 24 hr 06/02/18 14:52 Temperature 96.4 F L Pulse Rate 85 Respiratory 18 Rate Blood Pressure 123/85 - Physical General Appearance: Yes: Disheveled, Mild Distress, Thin, Sweating, Anxious, Other HEENTM: Yes: EOMI, Hearing grossly Normal, Normal ENT Inspection, Normocephalic , Normal Voice, JEAN, Pharynx Normal, Tm's normal, Other (wears glasses) Respiratory: Yes: Chest Non-Tender, Lungs Clear, Normal Breath Sounds, No Respiratory Distress, No Accessory Muscle Use Neck: Yes: Within Normal Limits Breast: Yes: Breast Exam Deferred Cardiology: Yes: Regular Rhythm, Regular Rate Abdominal: Yes: Normal Bowel Sounds, Non Tender, Flat Genitourinary: Yes: Within Normal Limits Musculoskeletal: Yes: full range of Motion, Gait Steady, Pelvis Stable Extremities: Yes: Normal Capillary Refill, Normal Inspection, Normal Range of Motion, Non-Tender Neurological: Yes: inspector and clipper II-XII NML intact, Fully Oriented, Alert, Motor Strength 5/5, Depressed Affect Integumentary: Yes: Normal Color, Warm, Diaphoresis Lymphatic: Yes: Within Normal Limits - Diagnostic (1) Weight loss Current Visit: No Status: Acute (2) Alcohol dependence with uncomplicated withdrawal Current Visit: Yes Status: Chronic (3) Low back pain Current Visit: Yes Status: Chronic Qualifiers: Chronicity: chronic Back pain laterality: unspecified Sciatica presence: without sciatica Qualified Code(s): M54.5 - Low back pain; G89.29 - Other chronic pain (4) Depressed mood Current Visit: Yes Status: Acute (5) Nausea and vomiting Current Visit: Yes Status: Acute Qualifiers: Vomiting type: unspecified Vomiting Intractability: unspecified Qualified Code(s): R11.2 - Nausea with vomiting, unspecified Cleared for Admission [facility] - Detox or Rehab [facility] Level of Care: Medically Managed Detox Regimen/Protocol: Librium [facility] Breath Alcohol Content Breath Alcohol Content: 0.041 Urine Drug Screen - Results Drug Screen Negative: No Urine Drug Screen Results: BZO-Benzodiazepines
[2018-06-02] MEDS ORDERED: MAGNESIUM HYDROX 2400MG/30ML ORAL SUSPENSION 30 ML CUP PO PRN (16:38)
[2018-06-02] MEDS ORDERED: chlordiazePOXIDE HCL 25 MG CAPSULE PO ONE (16:38)
[2018-06-02] MEDS ORDERED: MAGNESIUM CITRATE 300 ML BOTTLE PO PRN (16:38)
[2018-06-02] MEDS ORDERED: ACETAMINOPHEN 325 MG TABLET (FP) PO PRN (16:38)
[2018-06-02] MEDS ORDERED: guaiFENesin/D-METHORPHAN HB 10 ML UNIT-DOSE CUPS PO PRN (16:38)
[2018-06-02] MEDS ORDERED: MAG HYDROX/AL HYDROX/SIMETH 30 ML UNIT-DOSE CUP PO PRN (16:38)
[2018-06-02] MEDS ORDERED: P-EPHED 60MG/TRIPROLIDI 2.5MG TABLET PO PRN (16:38)
[2018-06-02] MEDS ORDERED: MENTHOL/PHENOL 1 EACH UD MM PRN (16:38)
[2018-06-02] MEDS ORDERED: IBUPROFEN 400 MG TABLET (FP) PO PRN (16:38)
[2018-06-02] MEDS: chlordiazePOXIDE HCL 25 MG CAPSULE PO PRN (21:00)
[2018-06-02] MEDS ORDERED: MELATONIN 5 MG TABLETS PO PRN (22:00)
[2018-06-02 22:08] LABS: URINE APPEARANCE CLEAR; URINE BILIRUBIN NEGATIVE (<2.0 mg/dL); URINE COLOR YELLOW; URINE GLUCOSE (UA) NEGATIVE (NEGATIVE); URINE KETONE NEGATIVE (NEGATIVE); URINE LEUK ESTERASE NEGATIVE (NEGATIVE); URINE NITRITE NEGATIVE (NEGATIVE); URINE PROTEIN NEGATIVE (NEGATIVE); URINE UROBILINOGEN NEGATIVE mg/dL (0.2-1.0)
[2018-06-02] MEDS: THIAMINE HCL 100 MG TABLET (FP) PO SCH (22:56)
[2018-06-02] MEDS: chlordiazePOXIDE HCL 25 MG CAPSULE PO SCH (22:56)
[2018-06-03] MEDS: chlordiazePOXIDE HCL 25 MG CAPSULE PO PRN (03:31)
[2018-06-03] MEDS: LOPERAMIDE HCL 2 MG CAPSULE PO PRN ×2 (03:31→16:43)
[2018-06-03] MEDS: chlordiazePOXIDE HCL 25 MG CAPSULE PO SCH ×4 (05:08→22:11)
[2018-06-03 09:40] LABS: HEMATOCRIT 38.3 % (35.4-49); HEMOGLOBIN 13.3 GM/dL (11.7-16.9); MCH 33.4 pg (25.7-33.7); MCHC 34.6 g/dl (32.0-35.9); MEAN CELL VOLUME 96.4 fl (80-96); MEAN PLT VOLUME 7.3 fl (7.5-11.1); PLATELET COUNT 182 K/MM3 (134-434); RBC 3.98 M/mm3 (4.00-5.60); RDW 17.9 % (11.9-15.9); WHITE BLOOD COUNT 6.1 K/mm3 (4.0-10.0)
[2018-06-03 09:56] LABS: CHLORIDE 104 mmol/L (98-107); POTASSIUM 3.4 mmol/L (3.5-5.1); SODIUM 141 mmol/L (136-145)
[2018-06-03] MEDS ORDERED: PRENATAL VITAMINS W/ FOLIC ACID TABLET (FP) PO SCH (10:00)
[2018-06-03 10:08] LABS: ALBUMIN 3.3 g/dl (3.4-5.0); ALK PHOS 125 U/L (45-117); ANION GAP 8 (8-16); BILIRUBIN,TOTAL 1.3 mg/dL (0.2-1.0); BLOOD UREA NITROGEN 8 mg/dL (7-18); CALCIUM 8.9 mg/dL (8.5-10.1); CO2 29 mmol/L (21-32); CREATININE 0.9 mg/dL (0.7-1.3); GLUCOSE,RANDOM 86 mg/dL (74-106); SGOT/AST 42 U/L (15-37); SGPT/ALT 45 U/L (12-78); TOT PROT 6.6 g/dl (6.4-8.2)
--- NOTE | 2018-06-03 12:26 | PN ---
[facility] CIWA - CIWA Score Nausea/Vomitin-No Nausea/No Vomiting Muscle Tremors: 3 Anxiety: 4-Mod. Anxious/Guarded Agitation: 3 Paroxysmal Sweats: No Perspiration Orientation: 0-Oriented Tacttile Disturbances: 2-Mild Itch/Numbness/Burn Auditory Disturbances: 1-Very Mild Visual Disturbances: 3-Moderate Sensitivity Headache: 0-None Present CIWA-Ar Total Score: 16 BHS Progress Note (SOAP) Subjective: Tremors, Fatigue, Anxious, Diarrhea. Objective: PATIENT A & O X 3, OBSERVED AMBULATING ON UNIT. NO ACUTE DISTRESS. 06/03/18 12:23 Vital Signs Temperature 98.2 F 06/03/18 09:37 Pulse Rate 86 06/03/18 09:37 Respiratory Rate 18 06/03/18 09:37 Blood Pressure 113/68 06/03/18 09:37 O2 Sat by Pulse Oximetry (%) Laboratory Tests 06/02/18 06/03/18 06/03/18 20:30 07:30 07:30 WBC 6.1 RBC 3.98 L Hgb 13.3 Hct 38.3 MCV 96.4 H MCH 33.4 MCHC 34.6 RDW 17.9 H Plt Count 182 MPV 7.3 L Sodium 141 Potassium 3.4 L Chloride 104 Carbon Dioxide 29 D Anion Gap 8 BUN 8 Creatinine 0.9 Creat Clearance w eGFR > 60 Random Glucose 86 Calcium 8.9 Total Bilirubin 1.3 H AST 42 H D ALT 45 D Alkaline Phosphatase 125 H Total Protein 6.6 Albumin 3.3 L Urine Color Yellow Urine Appearance Clear Urine pH 8.0 Ur Specific [place] 1.016 Urine Protein Negative Urine Glucose (UA) Negative Urine Ketones Negative Urine Blood Negative Urine Nitrite Negative Urine Bilirubin Negative Urine Urobilinogen Negative Ur Leukocyte Esterase Negative LABS NOTED. RPR RESULT PENDING. 06/03/18 12:25 Assessment: 06/03/18 12:23 WITHDRAWAL SYMPTOMS. HYPOKALEMIA. 06/03/18 12:25 Plan: CONTINUE DETOX. INCREASE DAILY PO FLUID INTAKE. K-DUR, 20 MEQ PO BID.
[2018-06-03] MEDS ORDERED: POTASSIUM CHLORIDE TABS 20 MEQ TABLET.ER (FP) PO ONE (12:40)
--- NOTE | 2018-06-03 12:50 | EKG ---
Test Reason : Blood Pressure : / mmHG Vent. Rate : 099 BPM Atrial Rate : 099 BPM P-R Int : 134 ms QRS Dur : 094 ms QT Int : 350 ms P-R-T Axes : 051 059 058 degrees QTc Int : 449 ms SINUS RHYTHM WITH PREMATURE ATRIAL COMPLEXES OTHERWISE NORMAL ECG WHEN COMPARED WITH ECG OF 20-FEB-2017 22:10, PREMATURE ATRIAL COMPLEXES ARE NOW PRESENT VENT. RATE HAS INCREASED BY 34 BPM Confirmed by JENNIFER MAC, GENARO ([id number]) on 06/03/2018 12:49:52 PM Referred By: Confirmed By:GENARO RODRIGUEZ MD
--- NOTE | 2018-06-03 15:59 | CONSULT ---
[facility] Psychiatric Consult - Data Date of interview: 06/03/18 Admission source: [facility] Identifying data: This is 62 years old male, , living with roommate, on SSI, with psychiatric hospitalization history, chronic history of alcohol dependence is here seeking detox, this is one of multiple admissions to [facility]. Substance Abuse History: - Smoking Cessation. Smoking history: Never smoked. Hx Chewing Tobacco Use: No. Initiated information on smoking cessation: No. - Substance & Tx. History. Hx Alcohol Use: Yes. Hx Substance Use: Yes. Substance Use Type: Alcohol. Hx Substance Use Treatment: Yes ([facility] detox [facility] five months ago. ). - Substances Abused. Alcohol. Route: Oral. Frequency: Daily. Amount used: 8-12 24 oz cans beer. Age of first use: 18. Date of Last Use: 06/02/18 Medical History: Weight loss, LBP Psychiatric History: Patient reports history of depression and anxiety, reports taking Remeron 15mg po qhs prior to admission, reports most recent psychiatric admission at [facility] on about 5 years ago for safety. Denies suicidal , homicidal history Physical/Sexual Abuse/Trauma History: Denies Additional Comment: Remeron 15mg po qhs Mental Status Exam - Mental Status Exam Alert and Oriented to: Time, Place, Person Cognitive Function: Fair Patient Appearance: Unkempt Mood: Anxious Affect: Mood Congruent Patient Behavior: Cooperative Speech Pattern: Appropriate Voice Loudness: Mildly Loud Thought Process: Goal Oriented Thought Disorder: Being Controlled Hallucinations: Denies Suicidal Ideation: Denies Homicidal Ideation: Denies Insight/Judgement: Fair Sleep: Difficulty falling asleep Appetite: Weight loss Muscle strength/Tone: Normal Gait/Station: Deferred Additional Comments: Remeron 15mg po qhs Psychiatric Findings - Problem List ([place] 1, 2,3) (1) Alcohol dependence with uncomplicated withdrawal Current Visit: Yes Status: Acute (2) Weight loss Current Visit: Yes Status: Acute (3) Low back pain Current Visit: Yes Status: Resolved Qualifiers: Chronicity: chronic Back pain laterality: unspecified Sciatica presence: without sciatica Qualified Code(s): M54.5 - Low back pain; G89.29 - Other chronic pain (4) Alcohol-induced mood disorder Current Visit: No Status: Acute (5) Alcohol-induced sleep disorder Current Visit: No Status: Chronic (6) Alcohol related seizure Current Visit: No Status: Suspected (7) Mood disorder Current Visit: No Status: Suspected (8) Syncope Current Visit: No Status: Suspected - Initial Treatment Plan Initial Treatment Plan: Remeron 15mg po qhs
[2018-06-03] MEDS ORDERED: POTASSIUM CHLORIDE TABS 20 MEQ TABLET.ER (FP) PO SCH (18:00)
[2018-06-03] MEDS ORDERED: MIRTAZAPINE 15 MG TABLET (FP) PO SCH (22:00)
[2018-06-03] MEDS: THIAMINE HCL 100 MG TABLET (FP) PO SCH (22:11)
[2018-06-04] MEDS: chlordiazePOXIDE HCL 25 MG CAPSULE PO SCH (05:20)
[2018-06-04 06:34] VITALS: BP 111/71; PULSE 101; TEMP 97.1
--- NOTE | 2018-06-04 12:37 | PN ---
S CIWA - CIWA Score Nausea/Vomitin-No Nausea/No Vomiting Muscle Tremors: 2 Anxiety: 5 Agitation: 5 Paroxysmal Sweats: No Perspiration Orientation: 0-Oriented Tacttile Disturbances: 2-Mild Itch/Numbness/Burn Auditory Disturbances: 0-None Visual Disturbances: 1-Very Mild Sensitivity Headache: 0-None Present CIWA-Ar Total Score: 15 BHS Progress Note (SOAP) Subjective: Anxious, Sweating, Tremors. Objective: PATIENT A & O X 3, OBSERVED AMBULATING ON UNIT. NO ACUTE DISTRESS. 06/04/18 12:36 Vital Signs Temperature 97.1 F L 06/04/18 06:34 Pulse Rate 101 H 06/04/18 06:34 Respiratory Rate 18 06/04/18 06:34 Blood Pressure 111/71 06/04/18 06:34 O2 Sat by Pulse Oximetry (%) Laboratory Tests 06/02/18 06/03/18 06/03/18 20:30 07:30 07:30 WBC 6.1 RBC 3.98 L Hgb 13.3 Hct 38.3 MCV 96.4 H MCH 33.4 MCHC 34.6 RDW 17.9 H Plt Count 182 MPV 7.3 L Sodium 141 Potassium 3.4 L Chloride 104 Carbon Dioxide 29 D Anion Gap 8 BUN 8 Creatinine 0.9 Creat Clearance w eGFR > 60 Random Glucose 86 Calcium 8.9 Total Bilirubin 1.3 H AST 42 H D ALT 45 D Alkaline Phosphatase 125 H Total Protein 6.6 Albumin 3.3 L Urine Color Yellow Urine Appearance Clear Urine pH 8.0 Ur Specific [place] 1.016 Urine Protein Negative Urine Glucose (UA) Negative Urine Ketones Negative Urine Blood Negative Urine Nitrite Negative Urine Bilirubin Negative Urine Urobilinogen Negative Ur Leukocyte Esterase Negative RPR Titer 06/03/18 07:30 WBC RBC Hgb Hct MCV MCH MCHC RDW Plt Count MPV Sodium Potassium Chloride Carbon Dioxide Anion Gap BUN Creatinine Creat Clearance w eGFR Random Glucose Calcium Total Bilirubin AST ALT Alkaline Phosphatase Total Protein Albumin Urine Color Urine Appearance Urine pH Ur Specific [place] Urine Protein Urine Glucose (UA) Urine Ketones Urine Blood Urine Nitrite Urine Bilirubin Urine Urobilinogen Ur Leukocyte Esterase RPR Titer Nonreactive LABS NOTED. Assessment: 06/04/18 12:36 WITHDRAWAL SYMPTOMS. Plan: CONTINUE DETOX.
--- NOTE | 2018-06-04 12:40 | DS ---
[facility] Detox Discharge Summary Admission Date: 06/02/18 Discharge Date: 06/04/18 - History Present History: Alcohol Dependence Additional Comments: PATIENT DOES NOT WISH TO REMAIN TO COMPLETE DETOX REGIMEN. RISKS OF LEAVING DETOX UNIT AGAINST MEDICAL ADVICE AND PRIOR TO COMPLETION OF DETOX REGIMEN EXPLAINED TO PATIENT. PATIENT ADVISED TO GO IMMEDIATELY TO NEAREST ER SHOULD ANY INTOLERABLE DETOX SYMPTOMS DEVELOP AT ANY TIME. PATIENT LEFT DETOX UNIT IN STABLE MEDICAL CONDITION. Pertinent Past History: Depression, Seizure (ETOH-Related), Hypokalemia, Nausea / Vomiting, Weight Loss , History of Low Back Pain, History of Syncope. - Physical Exam Results Vital Signs: Vital Signs Temperature 97.1 F L 06/04/18 06:34 Pulse Rate 101 H 06/04/18 06:34 Respiratory Rate 18 06/04/18 06:34 Blood Pressure 111/71 06/04/18 06:34 O2 Sat by Pulse Oximetry (%) Pertinent Admission Physical Exam Findings: WITHDRAWAL SYMPTOMS. Laboratory Tests 06/02/18 06/03/18 06/03/18 20:30 07:30 07:30 WBC 6.1 RBC 3.98 L Hgb 13.3 Hct 38.3 MCV 96.4 H MCH 33.4 MCHC 34.6 RDW 17.9 H Plt Count 182 MPV 7.3 L Sodium 141 Potassium 3.4 L Chloride 104 Carbon Dioxide 29 D Anion Gap 8 BUN 8 Creatinine 0.9 Creat Clearance w eGFR > 60 Random Glucose 86 Calcium 8.9 Total Bilirubin 1.3 H AST 42 H D ALT 45 D Alkaline Phosphatase 125 H Total Protein 6.6 Albumin 3.3 L Urine Color Yellow Urine Appearance Clear Urine pH 8.0 Ur Specific [place] 1.016 Urine Protein Negative Urine Glucose (UA) Negative Urine Ketones Negative Urine Blood Negative Urine Nitrite Negative Urine Bilirubin Negative Urine Urobilinogen Negative Ur Leukocyte Esterase Negative RPR Titer 06/03/18 07:30 WBC RBC Hgb Hct MCV MCH MCHC RDW Plt Count MPV Sodium Potassium Chloride Carbon Dioxide Anion Gap BUN Creatinine Creat Clearance w eGFR Random Glucose Calcium Total Bilirubin AST ALT Alkaline Phosphatase Total Protein Albumin Urine Color Urine Appearance Urine pH Ur Specific [place] Urine Protein Urine Glucose (UA) Urine Ketones Urine Blood Urine Nitrite Urine Bilirubin Urine Urobilinogen Ur Leukocyte Esterase RPR Titer Nonreactive LABS NOTED. - Treatment Hospital Course: Detoxed Safely - Medication Discharge Medications: Ambulatory Orders Mirtazapine [Remeron -] 15 mg PO HS #30 tablet 06/03/18 - Diagnosis (1) Hypokalemia Status: Acute (2) Depressed mood Status: Acute (3) Nausea and vomiting Status: Acute Qualifiers: Vomiting type: unspecified Vomiting Intractability: unspecified Qualified Code(s): R11.2 - Nausea with vomiting, unspecified (4) Weight loss Status: Acute (5) Alcohol dependence with uncomplicated withdrawal Status: Acute (6) Low back pain Status: Resolved Qualifiers: Chronicity: chronic Back pain laterality: unspecified Sciatica presence: without sciatica Qualified Code(s): M54.5 - Low back pain; G89.29 - Other chronic pain (7) Alcohol-induced mood disorder Status: Acute (8) Alcohol related seizure Status: Suspected (9) Mood disorder Status: Suspected (10) Syncope Status: Suspected Qualifiers: Syncope type: unspecified Qualified Code(s): R55 - Syncope and collapse (11) Alcohol-induced sleep disorder Status: Chronic - AMA Did Patient Leave Against Medical Advice: Yes (PATIENT DID NOT WISH TO REMAIN TO COMPLETE DETOX REGIMEN.)
[2018-06-04] MEDS ORDERED: chlordiazePOXIDE 5 MG CAPSULE PO SCH (23:00)
[2018-06-05] MEDS ORDERED: chlordiazePOXIDE HCL 10 MG CAPSULE PO SCH (23:00)
== END 2018-06-04 10:38 | disposition left against medical advice (07) | DRG 770 ==
LOC: YASAS 12:59 → Y3N 16:46
PROVIDERS: ADMIT Surgery; ATTEND Surgery
PROC: HZ2ZZZZ Detoxification Services for Substance Abuse Treatment (ICD-10-PCS; principal; 2018-06-02)
DX: F10.230 Alcohol dependence with withdrawal, uncomplicated (principal); F10.24 Alcohol dependence with alcohol-induced mood disorder; F10.282 Alcohol dependence with alcohol-induced sleep disorder; F32.9 Major depressive disorder, single episode, unspecified; R11.2 Nausea with vomiting, unspecified; M54.5 Low back pain; G89.29 Other chronic pain; Z88.1 Allergy status to other antibiotic agents; Z88.2 Allergy status to sulfonamides; Z86.69 Personal history of other diseases of the nervous system and sense organs; Z87.898 Personal history of other specified conditions
CPT/HCPCS: 36415; 71046-TC-FY; 80053; 81003; 85027; 86593; 93005; 93010